=== PATIENT | male | born 1950 | race Caucasian/White ===

== ENCOUNTER → 2020-07-12 08:38 | Outpatient (BNVA) | payer OTHER, SELFPAY | PROVIDERS: Family Provider Internal Medicine; PCP Internal Medicine; Visit Provider Nurse Practitioner | DX: R41.3 Other amnesia (principal); Z86.73 Personal history of transient ischemic attack (TIA), and cerebral infarction without residual deficits | CPT/HCPCS: 96116; 99204 ==

== ENCOUNTER → 2020-12-06 14:31 | Outpatient (BNVA) | payer OTHER, SELFPAY | PROVIDERS: Visit Provider Internal Medicine Cardiovascular Disease | DX: G45.9 Transient cerebral ischemic attack, unspecified (principal); I10 Essential (primary) hypertension; I77.9 Disorder of arteries and arterioles, unspecified | CPT/HCPCS: 87635 ==

== ENCOUNTER → 2020-12-08 10:52 | Outpatient (BNVA) | payer OTHER, SELFPAY | PROVIDERS: Visit Provider Nurse Practitioner | DX: R41.3 Other amnesia (principal); I67.2 Cerebral atherosclerosis; Z87.891 Personal history of nicotine dependence | CPT/HCPCS: 99213; 99214 ==

== ENCOUNTER 2020-12-09 10:38 | Day surgery (SDC) | payer OTHER, SELFPAY ==
[2020-12-07 13:57] VITALS: BMI 34.4
[2020-12-09 11:24] VITALS: BP 174/113; PULSE 76; RESP 18; TEMP 36.3; O2SAT 97
--- NOTE | 2020-12-09 11:42 | W.PM.OPSFHP ---
Same Day Surgery H&P Indication for Procedure/HPI DATE OF PROCEDURE: December 09, 2020 CHIEF COMPLAINT/INDICATIONFOR SURGICAL PROCEDURE: Recurrent TIA's, h/o CVA PREOP DIAGNOSIS: CVA/TIA's PLANNED PROCEDRUE: Operation Date: 12/09/20 12:00 Proposed Procedures p NENA(Not Applicable) - Rianna Nina MD 70 yo man with PMHx of chronic low back pain, anxiety, HTN, HLD, h/o hearing loss, PTSD, h/o multiple TIA's, COPD and TREY on CPAP. He is former heavy smoker and quit 25 years back. He apparently had some type of stroke 20 years ago that resulted in memory difficulty and hemineglect at that time. Since that time he has struggled with memory. His persistent symptoms include intermittent falls, that may be accompanied by a slight headache followed by depression and frustration. She reports that he is also having difficulty with his memory however this seems to be related to the symptomology and he has to relearn things. He recently had MRI that was reviewed by neurology that I do not have the results of. He tells me he had stress test in 2019 that was negative. NO h/o CAD or stenting. He is here to get NENA to r/o cardioembolic source. Medications/Allergies* Home Medications Medication Instructions Recorded Confirmed Type aspirin 325 mg tablet 325 mg PO DAILY 10/12/20 12/09/20 History atorvastatin 80 mg tablet 40 mg PO DAILY tab 10/12/20 12/09/20 History budesonide-formoterol HFA 160 2 puff INHALATION BID 10/12/20 12/09/20 History mcg-4.5 mcg/actuation aerosol inhaler bupropion HCl 150 mg 24 hr tablet, 150 mg PO QAM 10/12/20 12/09/20 History extended release fluticasone propionate 50 1 spray INTRANASAL DAILY 10/12/20 12/09/20 History mcg/actuation nasal spray,suspension methocarbamol 750 mg tablet 750 mg PO TID 10/12/20 12/08/20 History omega-3 fatty acids 1,000 mg 1,000 mg PO DAILY 10/12/20 12/08/20 History capsule phenylephrine HCl 10 mg tablet 10 mg PO BID tab 10/12/20 12/08/20 History sertraline 100 mg tablet 200 mg PO DAILY tab 10/12/20 12/08/20 History terazosin 2 mg capsule 4 mg PO DAILY cap 10/12/20 12/08/20 History tiotropium bromide 2.5 2 inh INHALATION QAM 10/12/20 12/08/20 History mcg/actuation mist for inhalation Allergies/Adverse Reactions Allergy/AdvReac Type Severity Reaction Status Date / Time No Known Allergies Allergy Unverified 12/08/20 10:53 Pertinent History/Comorbid Conditions* Medical History (Updated 12/08/20 @ 11:55 by Eduard Hamilton, INSTITUTIONAL RESEARCH COORDINATOR, MSN, [facility]-) Carotid artery disease Cerebral atherosclerosis HTN (hypertension) Hyperlipidemia Memory loss Obstructive sleep apnea Transient cerebral ischemic attack Family History (Updated 10/12/20 @ 13:14 by Lili Bates RN) Atrial flutter Myocardial infarction Stroke Denies family history of Diabetes Social History Smoking and tobacco status: former smoker Alcohol intake: current Alcohol intake frequency: other History of recent travel: No Pertinent Exam Findings alert, oriented x 3, clear to auscultation bilaterally and regular rate & rhythm ASA 3 Airway 3 Related Problem List Diagnoses (1) Transient cerebral ischemic attack: Additional Information: Plan for NENA today. Qualifiers: Transient cerebral ischemia type: unspecified Qualified Code(s): G45.9 - Transient cerebral ischemic attack, unspecified (2) Cerebral atherosclerosis: (3) NSVT (nonsustained ventricular tachycardia): Additional Information: Noted on event monitor. -Plan for stress test as an outpatient. (4) HTN (hypertension): Qualifiers: Hypertension type: essential hypertension Qualified Code(s): I10 - Essential (primary) hypertension (5) Hyperlipidemia: Qualifiers: Hyperlipidemia type: mixed hyperlipidemia Qualified Code(s): E78.2 - Mixed hyperlipidemia Recommendations Surgery/Procedure today Coding Level of Care Code Acute Choir Accompanist for Chg Fwd Diagnoses Transient cerebral ischemic attack G45.9 Transient cerebral ischemia type: unspecified Cerebral atherosclerosis I67.2 NSVT (nonsustained ventricular tachycardia) I47.2 HTN (hypertension) I10 Hypertension type: essential hypertension Hyperlipidemia E78.2 Hyperlipidemia type: mixed hyperlipidemia
[2020-12-09] MEDS: sodium chloride 0.9% 1,000 ML 30 ML IV (11:50)
--- NOTE | 2020-12-09 12:04 | USCV_ITS ---
Sameer Upton Age: 70 Gender: M : 1950 Exam Date: 12/09/2020 12:08 Ordering Phys: Rianna Nina MD ([email or web address]) Technologist: Basim Wayne Exam Location: [facility] [place] Indication: CVA BP: / HR: Rhythm: Sinus Technical Quality: Good MEASUREMENTS (Male / Female) Normal Values Medications Patient given IV sedation by anesthesia service, for details please refer to the anesthesia report. Complications Intubation easy. Attempts x1, No blood on probe post procedure. Proc. Components Multiple images obtained at mid esophageal and trans-gastric level. FINDINGS Left Ventricle Normal left ventricular size, systolic function and wall thickness, with no regional wall motion abnormalities. Left ventricular ejection fraction is estimated at 65 %. Right Ventricle Normal right ventricular size and systolic function. Right Atrium Normal right atrial size. Left Atrium Normal left atrial size. No left atrial mass or thrombus visualized. LA Appendage Normal left atrial appendage. Normal flow velocities in the left atrial appendage. No thrombus visualized in the left atrial appendage. IA Septum Normal interatrial septum. No patent foramen ovale. No evidence for an atrial septal defect. Mitral Valve Structurally normal mitral valve. No mitral valve stenosis. Mild mitral valve regurgitation. Aortic Valve Structurally normal trileaflet aortic valve. No aortic valve stenosis. No aortic valve regurgitation. Tricuspid Valve Structurally normal tricuspid valve. No tricuspid valve stenosis. Trace tricuspid valve regurgitation. Pulmonic Valve Structurally normal pulmonic valve. No pulmonary valve stenosis. Trace pulmonary valve regurgitation. Pericardium No pericardial effusion. Aorta Normal size aortic root and proximal ascending aorta. No evidence of aortic dilation, aneurysm or dissection. CONCLUSIONS 1. Normal left ventricular size, systolic function and wall thickness, with no regional wall motion abnormalities. Left ventricular ejection fraction is estimated at 65 %. 2. No left atrial or left atrial appendage thromubus noted. 3. No evidence for an atrial septal defect or patent foramen ovale. 4. Mild mitral valve regurgitation. Rianna Nina MD (Electronically Signed) Final Date: 12 December 2020 17:52 S
--- NOTE | 2020-12-09 12:04 | ANES.PREANE2 ---
Pre-Anesthetic Assessment Pre-Anesthetic Assessment: Height/Weight: Height 1.73 m Weight 99.79 kg Temp Pulse Resp BP Pulse Ox 97.4 F L 76 18 174/113 97 12/09/20 11:24 12/09/20 11:24 12/09/20 11:24 12/09/20 11:24 12/09/20 11:24 Proposed Procedure: Operation Date: 12/09/20 12:00 Proposed Procedures p NENA(Not Applicable) - Rianna Nina MD Was Beta Jennifer taken within 24 hours: N/A Last intake: Intake Last Liquid Date 12/08/20 Last Liquid Time 22:00 Last Solid Date 12/08/20 Last Solid Time 19:00 Social: Social History: Tobacco and No alcohol Exam: Pre-Anes Outpt Exam: alert, oriented x 3 and regular rate & rhythm Airway: Submandibular: WNL Cervical ROM: WNL MP: 2 Dentition: Chipped Additional comments: Poor dentition Pulmonary: Pulmonary: COPD CV/HEM: CV/HEM: CAD, HTN and PVD Neuropsych: Neuropsych: TIA Comments: Memory loss Anesthetic Plan: ASA status: 3 Anesthesia: MAC Risk of > 500 ml blood loss (7ml/kg in children): No Meds/Allergies Current Medications: Current Medications Generic Name Dose Route Start Last Admin Trade Name Freq PRN Reason Stop Dose Admin Sodium Chloride 1,000 mls @ 30 ml s/hr 12/09/20 11:15 12/09/20 11:50 Sodium Chloride 0.9% IV 12/10/20 11:14 30 mls/hr .Q24H LEEANN Administration PFSH Anesthesia PFSH: Medical History (Updated 12/08/20 @ 11:55 by Eduard Hamilton, HEALTH PROGRAM SPECIALIST, MSN, [facility]-) Carotid artery disease Cerebral atherosclerosis HTN (hypertension) Hyperlipidemia Memory loss Obstructive sleep apnea Transient cerebral ischemic attack Family History Other Atrial flutter Myocardial infarction Stroke Denies family history of Diabetes Social History (Updated 12/08/20 @ 11:19 by Vera Brown) Smoking and tobacco status: former smoker Alcohol intake: current Alcohol intake frequency: other History of recent travel: No Data Anesthesia Cardiac Studies: Holter Monitor 11/30/20
[2020-12-09 12:42] VITALS: BP 129/72; PULSE 76; RESP 18; TEMP 36.3; O2SAT 94
[2020-12-09 12:55] VITALS: BP 128/64; PULSE 77; RESP 18; O2SAT 95
--- NOTE | 2020-12-09 13:04 | ANE.PACU2 ---
Inpatient post-anesthesia follow up: Airway intact: Yes Vital signs: Temperature 97.4 F Pulse Rate 77 Respiratory Rate 18 Blood Pressure 128/64 Pulse Oximetry 95 Oxygen Delivery Me thod Room Air Oxygen Flow Rate Fraction of Inspir ed Oxygen Hydration adequate: Yes Nausea and vomiting: No Pain level: 1 Mental status: Baseline
--- NOTE | 2020-12-10 14:22 | PM.ACPR ---
Procedure/Consent Time out: Time Out Performed: Yes Consent: Consent for Procedure: Consent obtained from patient Procedure Narrative: NENA Procedure note Indication: Acute stroke Sedation: Propofol by anesthesia The patient was brought down to the outpatient surgery unit. Procedure was explained to the patient in detail and informed consent was obtained. Timeout was called. After achieving adequate sedation, the probe was inserted on first attempt. No blood on the probe post procedure. Prelim report: Normal left ventricle size and systolic function. No left atrial or left atrial appendage mass or thrombus visualized. No ASD or PFO identified. Full report to follow. Patient tolerated the procedure well and after initial recovery in outpatient surgery unit, he was discharged home. Acute Procedures Epistaxis Control: Time out performed: Yes
== END 2020-12-09 13:10 | disposition home or self-care (01) ==
PROVIDERS: Visit Provider Internal Medicine Cardiovascular Disease
PROC: (CPT 93312; principal; 2020-12-09 12:00)
DX: G45.9 Transient cerebral ischemic attack, unspecified (principal); I67.2 Cerebral atherosclerosis; I47.2 Ventricular tachycardia; E78.2 Mixed hyperlipidemia; I34.0 Nonrheumatic mitral (valve) insufficiency; Z86.73 Personal history of transient ischemic attack (TIA), and cerebral infarction without residual deficits; F41.9 Anxiety disorder, unspecified; I10 Essential (primary) hypertension; E78.5 Hyperlipidemia, unspecified; J44.9 Chronic obstructive pulmonary disease, unspecified; G47.33 Obstructive sleep apnea (adult) (pediatric); Z87.891 Personal history of nicotine dependence; Z91.81 History of falling; Z79.82 Long term (current) use of aspirin; I25.10 Atherosclerotic heart disease of native coronary artery without angina pectoris
CPT/HCPCS: 12345; 93312; 93320; 93325; J2704; J7030

== ENCOUNTER 2021-01-04 10:32 | Outpatient (CLI) | payer OTHER, SELFPAY ==
[2021-01-04 10:57] VITALS: BMI 33.4
--- NOTE | 2021-01-04 10:57 | NMCV_ITS ---
NM ester perf SPECT r/s* [id number] Sameer Upton Age: 70 Gender: M : 1950 Exam Date: 01/04/2021 11:55 Ordering Phys: Rianna Nina MD ([email or web address]) Technologist: NICOLA Rg Exam Location: [facility] Indications: VENTRICULAR TACHYCARDIA STRESS TEST Please see separate stress test report in [facility] for full findings IMAGE PROTOCOL Rest/Stress 1 Lexiscan Day Radiopharmaceutical Dose (mCi) Administration Site Administered by Rest: Tc-99m 10.8 IV NICOLA Rg Sestamibi Stress:Tc-99m 32.3 IV NICOLA gR Sestamibi Rest: 04-Jan-2021 60 Discovery 630 Stress: 04-Jan-2021 30 Discovery 630 0.4mg Lexiscan. Images obtained in supine and prone position. SPECT RESULTS Technical Quality: Excellent Raw Data Analysis: Normal Image Corrections: No attenuation or motion correction applied Summed Stress Score: 1 Summed Rest Score: 1 Summed Difference Score: 1 PERFUSION FINDINGS FUNCTIONAL RESULTS (calculated via Gated SPECT) Stress Image LV EF (%): 66 Stress EDV (mL):85 TID: 1.05 Stress ESV (mL):29 FUNCTIONAL FINDINGS: The left ventricle is normal in size. Transient Ischemia Dilatation of 1.1. There is normal left ventricular systolic function. The left ventricular ejection fraction is normal with a value of 66%. There is normal left ventricular wall thickening. Normal end-diastolic and end-systolic volumes. IMPRESSIONS 1. Myocardial perfusion imaging is normal. Attenuation artifact noted in mid anterior wall. 2. Overall left ventricular systolic function is normal without regional wall motion abnormalities. 3. The left ventricular ejection fraction is normal with a value of 66%. 4. This study suggests a low likelihood of angiographically significant coronary artery disease. 5. No prior similar studies to compare. Rianna Nina MD (Electronically Signed) Final Date: 10 January 2021 12:27 S
--- NOTE | 2021-01-04 10:57 | ECG_ITS ---
[facility] Test Date: 2021-01-04 Pat Name: Sameer Upton Department: Room: Gender: Male Walking Dragline Operator: Violetta Simmons : 1950 Requested By: Rianna Nina Order Number: [id number] Vanessa MD: Rianna Nina M.D. Interpretive Statements NAME OF STUDY: LEXISCAN SESTAMIBI STRESS TEST INDICATION: Chest Pain PROCEDURE: At the baseline, the blood pressure was 163/92 mmHg, oxygen saturation 99% with a heart rate of 85 bpm. The electrocardiogram showed normal sinus rhythm, normal axis with first-degree AV block. Possible old anterior infarct. Normal ST and T's. The Lexiscan was infused over a period of 20 seconds. A total of 0.4 milligrams of Lexiscan was infused. The stress phase was continued for a total of 5 minutes. Heart rate at the end of the stress phase was 90 bpm, oxygen saturation 98% with a blood pressure of 147/82 mmHg. The EKG at the peak infusion revealed sinus rhythm with no significant ST-T wave changes. Study was terminated due to protocol completion. Sestamibi was injected 20 seconds after the Lexiscan infusion. Blood pressure at the end of the recovery phase was 148/81 mmHg, oxygen saturation 98% with a heart rate of 85 beats per minute. CONCLUSION: 1. No significant EKG changes with the LexiScan infusion. 2. No LexiScan induced chest pain or cardiac arrhythmia. 3. Normal blood pressure and heart rate response. 4. Sestamibi/sestamibi perfusion scan pending; see separate report. Electronically Signed On 01-05-2021 14:18:08 STATISTICIAN APPLIED by Rianna Nina M.D. [id number]
[2021-01-04 12:26] VITALS: BP 132/76; PULSE 97
[2021-01-04] MEDS: regadenoson 0.4 Mg/5 ml Syringe IVP (12:26)
== END 2021-01-04 10:33 | disposition home or self-care (01) ==
LOC: CDL 10:32
PROVIDERS: PCP Family Medicine; Visit Provider Internal Medicine Cardiovascular Disease
DX: I47.2 Ventricular tachycardia (principal)
CPT/HCPCS: 78452; 93017; A9500; J2785

== ENCOUNTER → 2021-12-27 14:16 | Outpatient (BNVA) | payer OTHER, SELFPAY | PROVIDERS: PCP Family Medicine; Visit Provider Podiatrist Foot & Ankle Surgery | DX: M79.671 Pain in right foot (principal); M79.672 Pain in left foot; M20.41 Other hammer toe(s) (acquired), right foot; M20.42 Other hammer toe(s) (acquired), left foot | CPT/HCPCS: 73630 ==

== ENCOUNTER → 2022-02-06 11:05 | Outpatient (BNVA) | payer OTHER, SELFPAY | PROVIDERS: PCP Family Medicine; Visit Provider Nurse Practitioner Family | DX: G45.9 Transient cerebral ischemic attack, unspecified (principal); I10 Essential (primary) hypertension; Z87.891 Personal history of nicotine dependence | CPT/HCPCS: 99214 ==

== ENCOUNTER 2022-04-28 06:11 | Day surgery (SDC) | payer OTHER, SELFPAY ==
[2022-04-27 10:48] VITALS: BMI 35.2
[2022-04-28] VITALS (7 sets, daily range): BP systolic 147–170; BP diastolic 80–102; PULSE 68–93; RESP 16–18; TEMP 36.3–36.8; O2SAT 90–97
--- NOTE | 2022-04-28 | SCC_ITS ---
Procedure done: Left first metatarsophalangeal joint fusion. CPT 32739 4 seconds of fluoroscopic guidance, for a cumulative dose of 0.057 mGy, was provided to Dr. Calvin by the radiology department. C-arm images of the LEFT foot were saved for the patient's permanent record. [facility]
[2022-04-28] MEDS: gabapentin 300 mg Capsule PO (06:41)
[2022-04-28] MEDS: sodium chloride 0.9% 1,000 ML 30 ML IV (06:46)
[2022-04-28 07:05] LABS: Blood Urea Nitrogen 17 mg/dL (8-23); Calcium 8.7 mg/dL (8.5-10.5); Carbon Dioxide 22 mmol/L (22-29); Chloride 106 mmol/L (98-107); Glucose 102 mg/dL (65-115); Osmolality Calculated 290 mOsm/kg (285-295); Sodium 139 mmol/L (136-145)
[2022-04-28 07:10] LABS: Creatinine Clr Calc Pharmacy 92.2203
[2022-04-28 07:11] LABS: Anion Gap 15.2 (5-19); Potassium 4.2 mmol/L (3.5-5.1)
--- NOTE | 2022-04-28 07:51 | P.HP_ITS ---
Providers/Chief Complaint Primary Care Provider: Narcisa Salazar MD Chief Complaint: 72-year-old patient presents to clinic with complaints of left foot pain greater than right.? States that the severity of his foot pain prevents him from standing and walking greater than 30 minutes.? Reports stiffness and bony prominence at the left great toe joint states that this is t he area that is most painful.? Describes the nature of the pain is arthritic in nature which becomes sharp stabbing with increased activities.? Can get as high as 8 out of 10 on the pain scale.? He also believes he may have a toenail fungus.? He believes he has arthritis in his feet.? He has overlapping toes on the first and second toes left and right foot.? He has been treating his pain with supportive shoes, has had several custom orthotics, he takes NSAIDs.? Has had to reduce his activity and states that he would like to exercise more but his left foot pain prevents this.? States that the pain has been progressive for many years.? Denies any subjective nausea, vomiting, fever, chills, shortness of breath or chest pain. History of Present Illness Sameer Upton is a 72 year old male Review of Systems General: Reports: 10 or more systems reviewed and unremarkable except in HPI and below Const: Denies: fever(s) or chills Eyes: Denies: change in vision Card: Denies: chest pain or palpitations Resp: Denies: dyspnea or productive cough GI: Denies: abdominal pain, nausea or vomiting : Denies: flank pain Musc: Reports: extremity pain, joint pain, joint stiffness, limited range of motion and deformity Skin/Breast: Reports: skin tenderness; Denies: rash Neuro: Reports: difficulty walking; Denies: numbness in extremities, sensory changes or frequent falls Psych: Denies: suicidal ideation Ferny/Lymph: Denies: easy bruising Medications/Allergies Home Medications Medication Instructions Recorded Confirmed Last Taken Type atorvastatin 80 mg tablet 40 mg PO DAILY tab 10/12/20 04/28/22 04/27/22 History budesonide-formoterol HFA 160 2 puff INHALATION BID 10/12/20 04/28/22 04/27/22 History mcg-4.5 mcg/actuation aerosol inhaler bupropion HCl 150 mg 24 hr tablet, 150 mg PO QAM 10/12/20 04/27/22 04/27/22 History extended release fluticasone propionate 50 1 spray INTRANASAL DAILY 10/12/20 04/27/22 04/27/22 History mcg/actuation nasal spray,suspension (Allergy Relief (fluticasone)) methocarbamol 750 mg tablet 750 mg PO TID 10/12/20 04/27/22 04/27/22 History omega-3 fatty acids 1,000 mg 1,000 mg PO DAILY 10/12/20 04/27/22 04/27/22 History capsule (Fish Oil Concentrate) phenylephrine HCl 10 mg tablet 10 mg PO BID tab 10/12/20 04/27/22 04/27/22 History sertraline 100 mg tablet 200 mg PO DAILY tab 10/12/20 04/27/22 04/27/22 History terazosin 2 mg capsule 4 mg PO DAILY cap 10/12/20 04/27/22 04/27/22 History tiotropium bromide 2.5 2 inh INHALATION QAM 10/12/20 04/27/22 04/27/22 History mcg/actuation mist for inhalation lisinopril 5 mg tablet 5 mg PO DAILY #90 tab 02/23/21 04/27/22 04/27/22 Rx hydrochlorothiazide 25 mg tablet 50 mg PO DAILY #60 tab 02/28/21 04/27/22 04/27/22 Rx Crutches #1 ea 04/28/22 Unknown Rx apixaban 5 mg tablet (Eliquis) 5 mg PO BID 04/28/22 04/28/22 04/27/22 History Allergies Allergy/AdvReac Type Severity Reaction Status Date / Time No Known Allergies Allergy Verified 02/06/22 09:50 PFSH PFSH: Medical History Carotid artery disease Cerebral atherosclerosis HTN (hypertension) Hyperlipidemia Memory loss Obstructive sleep apnea Transient cerebral ischemic attack Family History Other Atrial flutter Myocardial infarction Stroke Denies family history of Diabetes Social History Smoking and tobacco status: former smoker Alcohol intake: current Alcohol intake frequency: other History of recent travel: No Vital Signs Weight: Weight last 48 hrs Weight 225 lb Physical Exam Narrative: EXAM NARRATIVE: GENERAL: Patient is alert and oriented ?3 and in no acute distress.? The following is a focused bilateral lower extremity exam. VASCULAR: Dorsalis pedis and posterior tibial arteries palpable +2.? Capillary refill time less than 3 seconds to the distal hallux bilaterally. Calf is supple and nontender proximally and distally.? No pedal edema appreciated.? Pedal hair growth present. NEUROLOGICAL: Epicritic and protopathic sensations grossly intact to the lower extremities.? +2 Achilles tendon reflex noted bilaterally.? Negative Tinel sign upon percussion of lower extremity nerves. DERMATOLOGICAL: Dystrophic toenails 1 through 5 bilaterally with thickening and discoloration.? No open wounds. MUSCULOSKELETAL: Second toe overrides the great toe bilaterally this is reducible.? First metatarsophalangeal joint dorsiflexion is significantly decreased, 10 degrees of dorsiflexion at the left first metatarsophalangeal joint and 20 degrees of dorsiflexion at the right first metatarsal phalangeal joint.? Left is more painful and has a osseous and range of motion.? Impressive osteophytes palpable and visualized on exam around circumferentially the left first metatarsal phalangeal joint.? Muscle strength 5 out of 5 in all 3 planes to the bilateral foot and ankle. CARDIOVASCULAR: S1, S2, normal rate, normal rhythm.? Dorsalis pedis and posterior tibial arteries palpable. LUNGS: Clear to auscltation, no use of acessory muscles, no crackles or wheezes. Data : 04/28/22 06:37 A&P Assessment and plan (1) Foot pain, bilateral: Status: Acute (2) Hammertoe, bilateral: Status: Acute (3) Bilateral bunions: Status: Acute (4) Hallux rigidus, bilateral: Status: Acute Plan Examined and evaluated, findings and treatment options were discussed with patient at length.? X-rays bilateral foot 3 views weightbearing taken and reviewed shows joint space narrowing of first metatarsophalangeal joint left greater than right.? Squaring off of the first metatarsal head bilaterally, subchondral sclerosis at the first metatarsal phalangeal joint bilaterally, hallux valgus and hammertoe deformities bilaterally.? Osteophytes and bossing at the first metatarsal phalangeal joint bilaterally.? Patient is already exhausted conservative measures consisting of supportive shoes, NSAIDs, activity modifications, custom orthotics, his deformity has been progressive for years and is now the limiting factor in his ability to exercise.? States he can only stand and walk from approximately 30 minutes before his left foot pain becomes too severe.? He would like to discuss surgical intervention.? My recommendation was a left first metatarsal phalangeal joint arthrodesis.? His hammertoes are not painful subjectively or on exam.? His area of maximum pain is at his left first metatarsal phalangeal joint.? He wishes to proceed with left first m etatarsophalangeal joint arthrodesis on 04/28/2022. Risks include but not limited to pain, bleeding, numbness, infection, delayed union, union, nonunion, hardware failure, need for further surgical intervention, transfer pressure to lesser metatarsals and lesser metatarsophalangeal joints. Need for further surgical intervention. Also risk for deep vein thrombosis, heart attack, stroke and . Patient is agreeable wishes to proceed. Left first metatarsal phalangeal joint arthrodesis, outpatient, 04/28/2022. Coding Level of Care Code Acute Steam Frame Operator for [facility] Fwd Diagnoses Foot pain, bilateral M79.671; M79.672 Hammertoe, bilateral M20.41; M20.42 Bilateral bunions M21.611; M21.612 Hallux rigidus, bilateral M20.21; M20.22
--- NOTE | 2022-04-28 07:51 | W.PM.OPSUD ---
Surgery/Procedure H&P Update DATE OF PROCEDURE: April 28, 2022 DATE H&P PERFORMED: 04/28/22 CHANGES TO PREVIOUS DOCUMENTATION: None PREOP DIAGNOSIS: Hallux rigidus, left foot. PLANNED PROCEDURE: Operation Date: 04/28/22 07:40 Proposed Procedures p Left first metatarsophalangeal joint fusion 19582,M20.22(Left) - Ty Calvin DPM
--- NOTE | 2022-04-28 07:55 | PM.OP ---
Operative Report Date of procedure: April 28, 2022 Pre-op diagnosis: Hallux rigidus, left foot. 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 CPT 26043 Implants: [place] 28 MTP plate, 3.5 millimeter screws and 2.7 millimeter screws, 3-0 Vicryl, 4-0 Vicryl, 4-0 nylon Specimens removed/disposition: None Pathology: None Surgeon: Ty Calvin D.P.M. 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 Squaring off of the first metatarsal head bilaterally, subchondral sclerosis at the first metatarsal phalangeal joint bilaterally, hallux valgus and hammertoe deformities bilaterally.? Osteophytes and bossing at the first metatarsal phalangeal joint bilaterally.? Patient is already exhausted conservative measures consisting of supportive shoes, NSAIDs, activity modifications, custom orthotics, his deformity has been progressive for years and is now the limiting factor in his ability to exercise.? States he can only stand and walk from approximately 30 minutes before his left foot pain becomes too severe.? He would like to discuss surgical intervention.? My recommendation was a left first metatarsal phalangeal joint arthrodesis.? His hammertoes are not painful subjectively or on exam.? His area of maximum pain is at his left first metatarsal phalangeal joint.? He wishes to proceed with left first metatarsophalangeal joint arthrodesis on 04/28/2022.? Risks include but not limited to pain, bleeding, numbness, infection, delayed union, union, nonunion, hardware failure, need for further surgical intervention, transfer pressure to lesser metatarsals and lesser metatarsophalangeal joints.? Need for further surgical intervention.? Also risk for deep vein thrombosis, heart attack, stroke and .? Patient is agreeable wishes to proceed. Procedure: Under mild sedation the patient was brought to the operating room and gurney in supine position. A timeout was performed. Anesthesia was administered by the anesthesia service. Local anesthesia was injected by myself consisting of 30 cc of one-to-one mixture 1% lidocaine and 0.25% Marcaine plain and a left Odom block fashion. Well-padded pneumatic tourniquet was applied to the left ankle. The left lower extremity was then scrubbed, prepped and draped utilizing normal aseptic technique. Left foot was then exanguinated with an Esmarch bandage and tourniquet inflated to 250 mmHg. Attention was directed to the left dorsal aspect of the first metatarsal phalangeal joint where a linear longitudinal incision was made medial and parallel to the extensor houses longus tendon through skin with dissection carried down through subcutaneous tissue to the layer of periosteum utilizing sharp and blunt technique. Care was taken to retract and preserve neurovascular and tendinous structures. All bleeders were ligated and cauterized as necessary. Periosteal incision was made in the head of the first metatarsal base of the proximal phalanx were freed from the soft tissue and capsular attachments and denuded of articular surface utilizing cone and cup reamers followed by further remodeling utilizing rongeur and sagittal saw of all rough edges and restoring normal curvature and anatomy to the first metatarsal phalangeal joint after having prepared for arthrodesis. Incision was flushed with saline solution, subchondral drilling was performed at the head of the first metatarsal and base of the proximal phalanx followed by anatomic reduction and a rectus straight line with slight dorsiflexion and very slight valgus with the great toe slightly adjacent to the second toe followed by fixation utilizing standard AO technique and locking and nonlocking screws with anatomic first metatarsal phalangeal joint arthrodesis plate by Ana Maria De Los Santos utilizing 3.5 millimeter screws and 2.7 millimeter screws. Excellent bony apposition and compression noted at the arthrodesis site with intact hardware appropriate depth and positioning confirmed with standard 3 view intraoperative C-arm and noted to be excellent in all 3 planes. The incision was flushed with saline solution. Simulating weightbearing a flat surface within the operating room the lid of the hardware was utilized to load the forefoot noted to have excellent positioning of the great toe making slight contact at the pulp of the toe flat on the weightbearing surface. The incision was then closed in a layered fashion with 3-0 Vicryl capsule, subcutaneous tissue closed with 4-0 Vicryl and skin with 4-0 nylon. Incision site was dressed with Adaptic, sterile 4 x 4, Kerlix and Nacho wrap. Tourniquet was deflated and a prompt hyperemic response is noted to the distal digits of the left foot. Patient tolerated the procedure and anesthesia well and was transferred to the PACU with vital signs stable and vascular status intact. Following a period of postoperative monitoring he will be discharged home, was dispensed a cam boot and is to remain nonweightbearing with the assistance of crutches or wheelchair he is to elevate his left foot while resting. Follow-up nurse visit Sunday next week for his first dressing change.
--- NOTE | 2022-04-28 08:03 | ANES.PREANE2 ---
Pre-Anesthetic Assessment Height/Weight: Height 1.7 m Weight 102.058 kg Preop Diagnosis: Hallux rigidus, left foot. Operation Date: 04/28/22 07:40 Proposed Procedures p Left first metatarsophalangeal joint fusion 59479,M20.22(Left) - Ty Calvin DPM Familial anesthetic complications: None Was Beta Jennifer taken within 24 hours: N/A Was Clonidine taken within 24 hours: N/A Last intake: Intake Last Liquid Date 04/27/22 Last Liquid Time 20:00 Last Solid Date 04/27/22 Last Solid Time 20:00 Social No alcohol and No tobacco Exam alert, oriented x 3, clear to auscultation bilaterally and regular rate & rhythm Airway Submandibular: within normal limits Cervical ROM: within normal limits Mallampati: Class II Dentition: chipped and false (upper) Comments: Comments: poor dentition on lower arch, missing some, martinez CV/HEM Arrythmia (SVT) and Hypertension Metabolic Hyperlipidemia Neuropsych Cerebrovascular Accident Anesthetic Plan ASA status: 3 Anesthesia: Choice Medications/Allergies Home Medications Medication Instructions Recorded Confirmed Last Taken Type atorvastatin 80 mg tablet 40 mg PO DAILY tab 10/12/20 04/28/22 04/27/22 History budesonide-formoterol HFA 160 2 puff INHALATION BID 10/12/20 04/28/22 04/27/22 History mcg-4.5 mcg/actuation aerosol inhaler bupropion HCl 150 mg 24 hr tablet, 150 mg PO QAM 10/12/20 04/27/22 04/27/22 History extended release fluticasone propionate 50 1 spray INTRANASAL DAILY 10/12/20 04/27/22 04/27/22 History mcg/actuation nasal spray,suspension (Allergy Relief (fluticasone)) methocarbamol 750 mg tablet 750 mg PO TID 10/12/20 04/27/22 04/27/22 History omega-3 fatty acids 1,000 mg 1,000 mg PO DAILY 10/12/20 04/27/22 04/27/22 History capsule (Fish Oil Concentrate) phenylephrine HCl 10 mg tablet 10 mg PO BID tab 10/12/20 04/27/22 04/27/22 History sertraline 100 mg tablet 200 mg PO DAILY tab 10/12/20 04/27/22 04/27/22 History terazosin 2 mg capsule 4 mg PO DAILY cap 10/12/20 04/27/22 04/27/22 History tiotropium bromide 2.5 2 inh INHALATION QAM 10/12/20 04/27/22 04/27/22 History mcg/actuation mist for inhalation lisinopril 5 mg tablet 5 mg PO DAILY #90 tab 02/23/21 04/27/22 04/27/22 Rx hydrochlorothiazide 25 mg tablet 50 mg PO DAILY #60 tab 02/28/21 04/27/22 04/27/22 Rx Crutches #1 ea 04/28/22 Unknown Rx apixaban 5 mg tablet (Eliquis) 5 mg PO BID 04/28/22 04/28/22 04/27/22 History hydrocodone 10 mg-acetaminophen 1 tab PO Q6H 7 Days #28 tab 04/28/22 Unknown Rx 325 mg tablet Allergies Allergy/AdvReac Type Severity Reaction Status Date / Time No Known Allergies Allergy Verified 02/06/22 09:50 Current Medications Generic Name Dose Route Start Last Admin Trade Name Freq PRN Reason Stop Dose Admin Sodium Chloride 1,000 mls @ 30 mls/hr 04/28/22 06:45 04/28/22 06:46 Sodium Chloride 0.9% IV 04/29/22 06:44 30 mls/hr .Q24H LEEANN Administration PFSH Anesthesia Medical History Carotid artery disease Cerebral atherosclerosis HTN (hypertension) Hyperlipidemia Memory loss Obstructive sleep apnea Transient cerebral ischemic attack Family History Other Atrial flutter Myocardial infarction Stroke Denies family history of Diabetes Social History Smoking and tobacco status: former smoker Alcohol intake: current Alcohol intake frequency: other History of recent travel: No Data Anesthesia : 04/28/22 06:37 BMP 04/28/22 06:37 Sodium 139 Potassium 4.2 Chloride 106 Carbon Dioxide 22 BUN 17 Creatinine 0.6 L Glucose 102 Calcium 8.7 Cardiac Studies: Transesophageal Echocardiogram 12/09/20 Sestamibi Stress Test (Cardiology) 01/04/21 Holter Monitor 11/30/20
--- NOTE | 2022-04-28 09:23 | XR_ITS ---
WS: [id number] Left foot, 3 views, 04/28/2022 Clinical Data: post op Comparison: Bilateral feet, 01/24/2022. Findings: There is a fusion of the left first MTP joint with a plate and screws. There is a distal osteotomy of the left first metatarsal. There is a 2.6 cm bone fragment lateral to the distal left first metatarsal. XR/XR foot LT min 3V* [id number] Impression: Fusion and osteotomy of left first MTP joint.
--- NOTE | 2022-04-28 13:13 | ANE.PACU2 ---
Inpatient post-anesthesia follow up: Airway intact: Yes Vital signs: Temperature 97.3 F Pulse Rate 68 Respiratory Rate 18 Blood Pressure 147/81 Pulse Oximetry 95 Oxygen Delivery Me thod Room Air Oxygen Flow Rate 4 Fraction of Inspir ed Oxygen Hydration adequate: Yes Nausea and vomiting: No Pain level: 2 Mental status: Baseline
== END 2022-04-28 10:34 | disposition home or self-care (01) ==
PROVIDERS: Anesthesiology; PCP Family Medicine; Visit Provider Podiatrist Foot & Ankle Surgery
PROC: (CPT 28750; principal; 2022-04-28 07:40)
DX: M20.22 Hallux rigidus, left foot (principal); I10 Essential (primary) hypertension; E78.5 Hyperlipidemia, unspecified; Z86.73 Personal history of transient ischemic attack (TIA), and cerebral infarction without residual deficits; G47.33 Obstructive sleep apnea (adult) (pediatric); Z87.891 Personal history of nicotine dependence
CPT/HCPCS: 28750; 73630; 76000; 80048; C1713; J0690; J2250; J2405; J2704; J3010; J3490; J7030

== ENCOUNTER → 2022-05-05 09:32 | Outpatient (BNVA) | payer OTHER, SELFPAY | PROVIDERS: PCP Family Medicine; Visit Provider Podiatrist Foot & Ankle Surgery | DX: Z98.890 Other specified postprocedural states (principal) | CPT/HCPCS: 99024; A6219 ==

== ENCOUNTER → 2022-05-11 15:13 | Outpatient (BNVA) | payer OTHER, SELFPAY | PROVIDERS: PCP Family Medicine; Visit Provider Podiatrist Foot & Ankle Surgery | DX: Z98.890 Other specified postprocedural states (principal); M20.21 Hallux rigidus, right foot; M20.22 Hallux rigidus, left foot; M21.611 Bunion of right foot; M21.612 Bunion of left foot; M20.41 Other hammer toe(s) (acquired), right foot; M20.42 Other hammer toe(s) (acquired), left foot; M79.671 Pain in right foot; M79.672 Pain in left foot; L60.3 Nail dystrophy | CPT/HCPCS: 99024 ==

== ENCOUNTER → 2022-05-18 11:20 | Outpatient (BNVA) | payer OTHER, SELFPAY | PROVIDERS: PCP Family Medicine; Visit Provider Podiatrist Foot & Ankle Surgery | DX: Z98.890 Other specified postprocedural states (principal) | CPT/HCPCS: 73630; 99024 ==

== ENCOUNTER → 2022-05-25 13:11 | Outpatient (BNVA) | payer OTHER, SELFPAY | PROVIDERS: PCP Family Medicine; Visit Provider Podiatrist Foot & Ankle Surgery | DX: Z98.890 Other specified postprocedural states (principal) | CPT/HCPCS: 73630; 99024 ==

== ENCOUNTER → 2022-06-07 15:03 | Outpatient (BNVA) | payer OTHER, SELFPAY | PROVIDERS: PCP Family Medicine; Visit Provider Podiatrist Foot & Ankle Surgery | DX: Z98.890 Other specified postprocedural states (principal) | CPT/HCPCS: 73630; 99024 ==

== ENCOUNTER → 2022-06-21 11:17 | Outpatient (BNVA) | payer OTHER, SELFPAY | PROVIDERS: PCP Family Medicine; Visit Provider Podiatrist Foot & Ankle Surgery | DX: Z98.890 Other specified postprocedural states (principal) | CPT/HCPCS: 73630; 99024 ==

== ENCOUNTER → 2022-07-20 13:25 | Outpatient (BNVA) | payer OTHER, SELFPAY | PROVIDERS: PCP Family Medicine; Visit Provider Podiatrist Foot & Ankle Surgery | DX: Z98.890 Other specified postprocedural states (principal) | CPT/HCPCS: 73630; 99024 ==

== ENCOUNTER → 2022-08-08 13:33 | Outpatient (BNVA) | payer OTHER, SELFPAY | PROVIDERS: PCP Family Medicine; Visit Provider Internal Medicine Cardiovascular Disease | DX: R06.00 Dyspnea, unspecified (principal); I10 Essential (primary) hypertension; Z86.73 Personal history of transient ischemic attack (TIA), and cerebral infarction without residual deficits; Z79.01 Long term (current) use of anticoagulants; I47.2 Ventricular tachycardia; I77.9 Disorder of arteries and arterioles, unspecified; Z87.891 Personal history of nicotine dependence | CPT/HCPCS: 99214 ==

== ENCOUNTER → 2022-08-09 10:25 | Outpatient (BNVA) | payer OTHER, SELFPAY | PROVIDERS: PCP Family Medicine; Visit Provider Specialist | DX: M19.041 Primary osteoarthritis, right hand (principal); M18.11 Unilateral primary osteoarthritis of first carpometacarpal joint, right hand | CPT/HCPCS: 73130; 99204 ==

== ENCOUNTER → 2023-05-08 13:46 | Outpatient (BNVA) | payer OTHER, SELFPAY | PROVIDERS: PCP Family Medicine; Visit Provider Internal Medicine Cardiovascular Disease | DX: R06.00 Dyspnea, unspecified (principal); I10 Essential (primary) hypertension; E78.2 Mixed hyperlipidemia; I77.9 Disorder of arteries and arterioles, unspecified; Z87.891 Personal history of nicotine dependence; Z86.73 Personal history of transient ischemic attack (TIA), and cerebral infarction without residual deficits | CPT/HCPCS: 99214 ==

== ENCOUNTER 2023-07-05 20:00 | Outpatient (CLI) | payer OTHER, SELFPAY | END 2023-07-05 20:01 | disposition home or self-care (01) | LOC: SLEEP 07-06 06:13 | PROVIDERS: PCP Family Medicine; Visit Provider Family Medicine | DX: G47.33 Obstructive sleep apnea (adult) (pediatric) (principal) | CPT/HCPCS: 95811 ==

== ENCOUNTER → 2024-09-02 15:03 | Outpatient (BNVA) | payer OTHER, SELFPAY | PROVIDERS: PCP Family Medicine; Visit Provider Internal Medicine Cardiovascular Disease | DX: I10 Essential (primary) hypertension (principal); E78.2 Mixed hyperlipidemia; Z87.898 Personal history of other specified conditions; Z87.891 Personal history of nicotine dependence | CPT/HCPCS: 99213 ==

== ENCOUNTER → 2024-11-10 13:38 | Outpatient (BNVA) | payer OTHER, SELFPAY | PROVIDERS: PCP Family Medicine; Visit Provider Podiatrist Foot & Ankle Surgery | DX: M79.671 Pain in right foot (principal); M79.672 Pain in left foot; M20.41 Other hammer toe(s) (acquired), right foot; M20.42 Other hammer toe(s) (acquired), left foot; L60.3 Nail dystrophy | CPT/HCPCS: 73630; 99213 ==

== ENCOUNTER → 2025-02-02 13:12 | Outpatient (BNVA) | payer OTHER, SELFPAY | PROVIDERS: PCP Family Medicine; Visit Provider Podiatrist Foot & Ankle Surgery | DX: M20.41 Other hammer toe(s) (acquired), right foot (principal); M20.42 Other hammer toe(s) (acquired), left foot; L60.3 Nail dystrophy; L84 Corns and callosities | CPT/HCPCS: 99213 ==

== ENCOUNTER → 2025-06-24 09:48 | Outpatient (BNVA) | payer OTHER, SELFPAY | PROVIDERS: PCP Family Medicine; Visit Provider Nurse Practitioner Family | DX: R23.3 Spontaneous ecchymoses (principal); D22.4 Melanocytic nevi of scalp and neck; L57.0 Actinic keratosis; L72.0 Epidermal cyst; M20.41 Other hammer toe(s) (acquired), right foot; D48.5 Neoplasm of uncertain behavior of skin | CPT/HCPCS: 11102; 17000; 99203 ==

== ENCOUNTER → 2025-08-31 15:32 | Outpatient (BNVA) | payer OTHER, SELFPAY | PROVIDERS: PCP Family Medicine; Visit Provider Internal Medicine Cardiovascular Disease | DX: I47.29 Other ventricular tachycardia (principal); E78.5 Hyperlipidemia, unspecified; I10 Essential (primary) hypertension; Z79.01 Long term (current) use of anticoagulants; Z86.73 Personal history of transient ischemic attack (TIA), and cerebral infarction without residual deficits | CPT/HCPCS: 99214 ==

== ENCOUNTER → 2025-10-01 15:32 | Outpatient (BNVA) | payer OTHER, SELFPAY | PROVIDERS: PCP Family Medicine; Visit Provider Nurse Practitioner Family | DX: D22.4 Melanocytic nevi of scalp and neck (principal); L57.8 Other skin changes due to chronic exposure to nonionizing radiation; Z08 Encounter for follow-up examination after completed treatment for malignant neoplasm; Z86.007 Personal history of in-situ neoplasm of skin; L57.0 Actinic keratosis | CPT/HCPCS: 17000; 99213 ==